=== PATIENT | female | born 1985 | race American Indian/Alaskan Native ===

== ENCOUNTER 2018-10-11 17:49 | Inpatient (IN) | payer BC ==
[2018-10-11 18:56] LABS: MEAN CORPUSCULAR HEMOGLOBIN 16.4 pg (27.0-31.0); WHITE BLOOD COUNT 5.5 K/uL (4.8-10.8)
[2018-10-11 19:01] LABS: MEAN CORPUSCULAR HGB CONC 29.3 g/dL (33.0-37.0); MEAN PLATELET VOLUME 9.9 fL (7.2-11.7); RBC 3.76 Mil/uL (3.80-5.20)
[2018-10-11 19:05] LABS: ALB/GLOB RATIO 1.3 (1.0-2.1); ALBUMIN 4.2 g/dL (3.5-5.0); ALT/SGPT 15 U/L (9-52); AST/SGOT 20 U/L (14-36); BLOOD UREA NITROGEN 12 mg/dL (7-17); CALCIUM 9.2 mg/dl (8.6-10.4); GFR NON-AFRICAN AMERICAN > 60; INR 1.3; PROTHROMBIN TIME 13.7 SECONDS (9.7-12.2)
[2018-10-11 19:10] LABS: HEMOGLOBIN 6.2 g/dL (11.0-16.0); MEAN CELL VOLUME 56.1 fL (81.0-99.0)
[2018-10-11 19:15] LABS: B-TYPE NATRIURETIC PEPTIDE 40.9 pg/mL (0-450)
[2018-10-11 19:36] LABS: EOS # 0.1 K/uL (0.0-0.7); LYMPH # 2.1 K/uL (1.0-4.3); MONO # 0.4 K/uL (0.0-0.8)
[2018-10-11 19:46] LABS: HCG,QUALITATIVE URINE NEGATIVE (NEGATIVE)
[2018-10-11 19:56] LABS: SQUAMOUS EPITHIAL 1 /hpf (0-5); URINE BACTERIA RARE (<OCC); URINE BILIRUBIN NEGATIVE (NEGATIVE); URINE BLOOD NEGATIVE (NEGATIVE); URINE CLARITY Clear (Clear); URINE COLOR Yellow (YELLOW); URINE GLUCOSE (UA) NORMAL (Normal); URINE LEUKOCYTE ESTERASE NEG Leu/uL (Negative); URINE PROTEIN NEGATIVE (NEGATIVE); URINE UROBILINOGEN NORMAL mg/dL (0.2-1.0)
--- NOTE | 2018-10-11 20:05 | C.PDOC ---
History Of Present Illness 32 year old female presents to the ED after being referred by her PMD, Dr. Francisco, for evaluation of abnormal labs. Patient was referred to the ED for admission and blood transfusion for symptoms of anemia and hemoglobin level of 6 .5 found in outpatient labwork. Patient has history of uterine bleeding and fibroids. She denies fever, chills, nausea, vomiting. Time Seen by Provider: 10/11/18 18:17 Chief Complaint (Nursing): Abnormal Labs History Per: Patient History/Exam Limitations: no limitations Onset/Duration Of Symptoms: Days Current Symptoms Are (Timing): Still Present Additional History Per: Patient Past Medical History Reviewed: Historical Data, Nursing Documentation, Vital Signs Vital Signs: Last Vital Signs Temp 98.2 F 10/11/18 19:10 Pulse 86 10/11/18 19:10 Resp 20 10/11/18 19:10 BP 101/54 L 10/11/18 19:10 Pulse Ox 100 10/11/18 19:10 - Medical History PMH: Anemia Surgical History: No Surg Hx Family History: States: Unknown Family Hx - Social History Hx Alcohol Use: No Hx Substance Use: No - Immunization History Hx Tetanus Toxoid Vaccination: No Hx Influenza Vaccination: Yes Hx Pneumococcal Vaccination: No Review Of Systems Constitutional: Positive for: Other (abnormal labs, hemoglobin of 6.5 ). Negative for: Fever, Chills Gastrointestinal: Negative for: Nausea, Vomiting Physical Exam - Physical Exam Appears: Non-toxic, No Acute Distress, Chronically Ill, Other (thin black female ) Skin: Warm, Dry, Pale Head: Atraumatic, Normacephalic Eye(s): bilateral: Normal Inspection Oral Mucosa: Moist Neck: Supple Chest: Symmetrical, No Deformity, No Tenderness Cardiovascular: Rhythm Regular, No Murmur Respiratory: Normal Breath Sounds, No Rales, No Rhonchi, No Wheezing Gastrointestinal/Abdominal: Soft, No Tenderness, No Guarding, No Rebound Pelvic: Other (deferred ) Extremity: Normal ROM Neurological/Psych: Oriented x3, Normal Speech, Normal Cognition ED Course And Treatment - Laboratory Results Result Diagrams: 10/11/18 18:42 10/11/18 18:42 Lab Interpretation: Abnormal (signficant microcytic anemia, UA neg.) Urine POC: Negative ECG: Interpreted By Me ECG Rhythm: Sinus Rhythm ECG Interpretation: Normal Rate From EC O2 Sat by Pulse Oximetry: 100 (on RA) Pulse Ox Interpretation: Normal - Radiology CXR: Interpreted by Me CXR Interpretation: Yes: No Acute Disease Progress Note: Bloodwork, urinalysis, CXR, EKG ordered and reviewed. Case discussed with Dr. Francisco at 1829 and 1999. Instructed to consult Dr. Leigh. Reevaluation Time: 20:06 Reassessment Condition: Improved - Physician Consult Information Outcome Of Conversation: 1829: d/w Dr. 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 I have reviewed the chart and agree that the record accurately reflects my personal performance of the history, physical exam, medical decision making, and the department course for this patient. I have also personally directed, reviewed, and agree with the discharge instructions and disposition.
[2018-10-11 21:48] VITALS: RESP 20
[2018-10-12 07:55] LABS: MEAN PLATELET VOLUME 9.7 fL (7.2-11.7)
[2018-10-12 08:01] LABS: MEAN CORPUSCULAR HEMOGLOBIN 19.5 pg (27.0-31.0); MEAN CORPUSCULAR HGB CONC 31.8 g/dL (33.0-37.0); RBC 4.45 Mil/uL (3.80-5.20); RED CELL DISTRIBUTION WIDTH 27.2 % (11.5-14.5)
[2018-10-12 08:09] LABS: HEMOGLOBIN 8.7 g/dL (11.0-16.0); MEAN CELL VOLUME 61.3 fL (81.0-99.0)
[2018-10-12 08:28] LABS: ALB/GLOB RATIO 1.2 (1.0-2.1); ALBUMIN 3.7 g/dL (3.5-5.0); ALT/SGPT 23 U/L (9-52); AST/SGOT 31 U/L (14-36); BLOOD UREA NITROGEN 8 mg/dL (7-17); CALCIUM 8.8 mg/dl (8.6-10.4); GFR NON-AFRICAN AMERICAN > 60
[2018-10-12 08:57] LABS: EOS # 0.1 K/uL (0.0-0.7); LYMPH # 1.6 K/uL (1.0-4.3); MONO # 0.3 K/uL (0.0-0.8)
--- NOTE | 2018-10-12 10:18 | RAD ---
Date of service: 10/11/2018 HISTORY: Shortness of breath COMPARISON: None available. FINDINGS: LUNGS: Mild venous congestion. Right hilar prominence. PLEURA: No significant pleural effusion identified, no pneumothorax apparent. CARDIOVASCULAR: No aortic atherosclerotic calcification present. Normal cardiac size. No pulmonary vascular congestion. OSSEOUS STRUCTURES: No significant abnormalities. VISUALIZED UPPER ABDOMEN: Normal. OTHER FINDINGS: None. IMPRESSION: Mild venous congestion. Right hilar prominence.
[2018-10-12 12:29] LABS: IRON 121 ug/dL (37-170)
[2018-10-12 12:39] LABS: % IRON SATURATION 30 (20-55); TOTAL IRON BINDING CAPACITY 410 ug/dL (250-450)
--- NOTE | 2018-10-12 15:36 | US ---
Date of service: 10/12/2018 HISTORY: fibroid COMPARISON: None available. TECHNIQUE: Real-time transabdominal pelvic ultrasound was performed. In addition a transvaginal pelvic ultrasound was necessary to better depict pelvic anatomy. FINDINGS: UTERUS: Measures 12.9 x 10.1 x 9.8 cm. Anteverted. Numerous probable uterine fibroids. For example: 9.4 x 8.2 x 8.7 cm mid fundal fibroid; 3.4 x 4.6 x 3.5 cm fundal right pedunculated fibroid; 3.6 x 3.5 x 3.1 cm intramural lower uterine segment fibroid. ENDOMETRIUM: Measures 1.3 cm in diameter. CERVIX: No cervical abnormality identified. RIGHT OVARY: Measures 2.7 x 1.4 x 2.6 cm. Blood flow is demonstrated. LEFT OVARY: Not visualized. FREE FLUID: No significant free fluid noted. OTHER FINDINGS: None. IMPRESSION: Fibroid uterus with 3 largest probable fibroids as above. The left ovary was not visualized.
--- NOTE | 2018-10-12 19:14 | CARD ---
APPROVED REPORT Date of service: 10/11/2018 EKG Measurement Heart [id number] IN 184P-11 [id number] <Conclusion> Normal sinus rhythm Normal ECG
[2018-10-13 06:19] LABS: HEMOGLOBIN 9.2 g/dL (11.0-16.0); MEAN CELL VOLUME 60.9 fL (81.0-99.0); MEAN CORPUSCULAR HEMOGLOBIN 19.2 pg (27.0-31.0); MEAN CORPUSCULAR HGB CONC 31.6 g/dL (33.0-37.0); MEAN PLATELET VOLUME 10.8 fL (7.2-11.7); RBC 4.8 Mil/uL (3.80-5.20); RED CELL DISTRIBUTION WIDTH 27.3 % (11.5-14.5); WHITE BLOOD COUNT 6.2 K/uL (4.8-10.8)
--- NOTE | 2018-10-13 06:54 | HP ---
HISTORY OF PRESENT ILLNESS: This patient is a 32 years old female with history of fibroid of the uterus, came to my office. The patient is complaining of shortness of breath on exertion, tachycardia, palpitation, and dizziness. The patient had recent blood work that has shown a hemoglobin of 6.5. The patient was advised to go to the emergency room for admission and blood transfusion. ALLERGIES: THE PATIENT HAS NO KNOWN ALLERGIES. PAST MEDICAL HISTORY: As I said, history of fibroid of the uterus. MEDICATIONS: The patient was taking iron. SOCIAL HISTORY: No history of smoking or alcohol abuse. The patient is , has no children. FAMILY HISTORY: No inherited disease. REVIEW OF SYSTEMS: RESPIRATORY SYSTEM: Shortness of breath on minor effort. CARDIOVASCULAR: Positive for palpitation. No chest pain. GASTROINTESTINAL: No nausea or vomiting. GENITOURINARY: The patient has been having abnormal bleeding during menstrual period for the past few months, but recently the bleeding was almost within normal limits. NEUROLOGIC: The patient feels weak. PHYSICAL EXAMINATION: GENERAL: The patient is alert, awake, and oriented x3. At the time of evaluation, the patient was somewhat pale. VITAL SIGNS: Blood pressure was 91/52, pulse was 98, respiration was 20, temperature was 98.1. HEENT: Eyes: PERRLA. Conjunctivae is very pale. NECK: Supple. No JVD. LUNGS: Clear. HEART: Regular rate and rhythm. ABDOMEN: Soft. Nontender, positive hypogastric mass involving the uterus. EXTREMITIES: There is no edema. LABORATORY DATA: The patient had tests done. The blood test in the emergency room that showed WBC 5.5, hemoglobin 6.2, hematocrit 21.1, and platelet was 493. Today, after blood transfusion, WBC is 5, hemoglobin 8.7, hematocrit 27.2, and platelet 421. Chemistry showed on admission, sodium was 138, potassium 3.6, chloride 102, bicarb 24, BUN 12, creatinine 0.7, and glucose 88. Calcium 9.2. Alkaline phosphatase is 28, ALT is 15, AST 20, total bilirubin 0.3. Coag: PT 13.7, INR 1.3, and PTT 31. Also the patient had ultrasound of the abdomen and pelvis that was significant for large fibroid of the uterus and the patient will be admitted with severe anemia and also fibroid of the uterus. The patient had consult with and the patient has received blood transfusion as ordered and Protonix also. Also, iron will be ordered. The case was reviewed and discussed with Promise Salas, the nurse practitioner. Bret Francisco MD
[2018-10-13 09:30] LABS: LYMPH # 2.2 K/uL (1.0-4.3); MONO # 0.4 K/uL (0.0-0.8); NEUT # 3.6 K/uL (1.8-7.0)
[2018-10-13] MEDS ORDERED: Pneumococcal 23-Valent Vaccine IM ONE (14:30)
[2018-10-13 16:11] VITALS: BP 95/59; PULSE 63; TEMP 98; O2SAT 100
--- NOTE | 2018-10-13 23:45 | PN ---
DATE: 10/13/2018 SUBJECTIVE: Today, the patient is more alert and awake. Denied any shortness of breath at this point and no chest pain or palpitation and good appetite. PHYSICAL EXAMINATION: VITAL SIGNS: The patient has a blood pressure of 95/59, pulse 63, respiration 20, temperature 98 degrees Fahrenheit. HEENT: Conjunctivae pink now. NECK: Supple. No JVD. LUNGS: Clear. HEART: Regular rate and rhythm. ABDOMEN: Soft. Nontender. No palpable mass. Abdomen showed a mass in the hypogastric area involving the uterus. EXTREMITIES: There is no edema. LABORATORY DATA: The patient had ultrasound of the abdomen and pelvis that has shown large fibroid of the uterus. The patient also has some blood tests done for today. WBC 6.2, hemoglobin 9.2, hematocrit 29.2, and platelets 402. Chemistry showed a sodium of 137, potassium 4.3, chloride 104, bicarb is 23, BUN 8, creatinine 0.5, and glucose is 83. AST 23, ALT 27. ASSESSMENT AND PLAN: The plan is that since the patient is asymptomatic, we are going to discharge the patient home and will follow with , the customer service engineer for the fibroid. The case was reviewed with Promise Salas, the nurse practitioner. Bret Francisco MD
--- NOTE | 2018-10-14 10:09 | DS ---
HISTORY OF PRESENT ILLNESS: The patient is a 32-year-old female who was seen in my office complaining of shortness of breath on exertion, tiredness, and loss of appetite, and the patient was found to have abnormal blood work. Hemoglobin was 6.5. I have advised the patient to go to the emergency room for evaluation, and the patient has hemoglobin of 6.2. In the ER, the patient was admitted, and had consult with Dr. Bravo. PHYSICAL EXAMINATION: GENERAL: The patient was pale. HEENT: Conjunctivae is very pale. NECK: Supple. LUNGS: Clear. HEART: Regular rate and rhythm, but has slight tachycardia. ABDOMEN: Soft. Positive for mass. EXTREMITIES: There is no edema. LABORATORY DATA: The patient had hemoglobin of 6.2, hematocrit 21.1, and the patient had blood transfusion done too, and now the patient is doing much better. No shortness of breath. No history of palpitation. The patient will be able to be discharged home. Follow up with Dr. Bravo regarding the mass. Bret Francisco MD
== END 2018-10-13 16:45 | disposition home or self-care (01) | DRG 761 ==
LOC: C.ER 17:49 → C.9E 20:03 → C.3T 21:40
PROVIDERS: ADMIT Specialist; ATTEND Specialist
DX: N93.8 Other specified abnormal uterine and vaginal bleeding (principal); D50.0 Iron deficiency anemia secondary to blood loss (chronic); D25.9 Leiomyoma of uterus, unspecified